=== PATIENT | female | born 1940 | race Two or more races ===

== ENCOUNTER 2025-09-30 10:54 | Inpatient (IN) | payer MEDICARE, OTHER ==
[~2025-09-30] VITALS: Ht 165.1 cm; Wt 72.6 kg
[2025-09-30] MEDS: VANCOMYCIN HCL 1.25 GM in IV D5W 260 ML IV ONE (11:41)
[2025-09-30 11:48] LABS: PLATELET COUNT (AUTO) 231 K/uL (150-450); RED BLOOD CELL COUNT(AUTO) 3.50 MIL/uL (4.0-5.2); RED CELL DISTRIBUTION WIDTH 13.0 % (11.5-15.0); WHITE BLOOD COUNT (AUTO) 5.6 K/uL (4.3-11.0)
[2025-09-30] MEDS ORDERED: LIDO30AD10 TP (11:52)
[2025-09-30] MEDS ORDERED: IBUP-1955 PO (11:52)
[2025-09-30] MEDS ORDERED: CLOP75TA15 PO (11:52)
[2025-09-30] MEDS ORDERED: CYCL5TAB PO (11:52)
[2025-09-30] MEDS ORDERED: DOCU100C36 PO (11:52)
[2025-09-30] MEDS ORDERED: FERR325T24 PO (11:52)
[2025-09-30] MEDS ORDERED: DICL100G26 TP (11:52)
[2025-09-30] MEDS ORDERED: SIME125T62 PO (11:52)
[2025-09-30] MEDS ORDERED: NYST60PO TP (11:52)
[2025-09-30] MEDS ORDERED: LACT10SO29 PO (11:52)
[2025-09-30] MEDS ORDERED: LOPE1LIQ56 PO (11:52)
[2025-09-30] MEDS ORDERED: ONDA-97 PO (11:52)
[2025-09-30] MEDS ORDERED: PANT40TA49 PO (11:52)
[2025-09-30] MEDS ORDERED: MAG30ORA PO (11:52)
[2025-09-30] MEDS ORDERED: LATA7.5D EACHEYE (11:52)
[2025-09-30] MEDS ORDERED: TRAM50TA2 PO (11:52)
[2025-09-30] MEDS ORDERED: CYCL30DR EACHEYE (11:52)
[2025-09-30] MEDS ORDERED: PROP10DR15 EACHEYE (11:52)
[2025-09-30] MEDS ORDERED: LORA10TA7 PO (11:52)
[2025-09-30] MEDS ORDERED: HYDR-4303 PO (11:52)
[2025-09-30] MEDS ORDERED: ATOR10TA PO (11:52)
[2025-09-30] MEDS ORDERED: FURO20TA4 PO (11:52)
[2025-09-30] MEDS ORDERED: METO50TA16 PO (11:52)
[2025-09-30] MEDS ORDERED: DONE5TAB34 PO (11:52)
[2025-09-30] MEDS ORDERED: ACET325T53 PO (11:52)
[2025-09-30] MEDS ORDERED: GABA300C PO (11:52)
[2025-09-30] MEDS ORDERED: MELA3TAB41 PO (11:52)
[2025-09-30] MEDS ORDERED: IPRA42SP BNOSTRILS (11:52)
[2025-09-30] MEDS ORDERED: LIPA1CAP15 PO (11:52)
[2025-09-30] MEDS ORDERED: MAGN500T2 PO (11:52)
[2025-09-30] MEDS ORDERED: VALS40TA12 PO (11:52)
[2025-09-30] MEDS ORDERED: ASCO500T20 PO (11:52)
[2025-09-30] MEDS ORDERED: MYRBETRIQ PO (11:52)
[2025-09-30 11:55] LABS: CALCIUM, SERUM 8.7 mg/dL (8.5-10.1); CREATININE 1.2 mg/dL (0.6-1.3); SODIUM SERUM 133.0 mmol/L (136-145); UREA NITROGEN, BLOOD 19.0 mg/dL (7-18)
[2025-09-30 12:01] LABS: ERYTHROCYTE SEDIMENTATION RATE 5 MM/HR (0-30)
[2025-09-30 12:17] LABS: INR 1.05 (0.91-1.10)
[2025-09-30] MEDS ORDERED: Z GUARD REMEDY 4 OZ OINT TP PRN (13:30)
[2025-09-30] MEDS ORDERED: MAG HYDROX/AL HYDROX/SIMETH 30 ML UDC PO PRN (13:30)
[2025-09-30] MEDS ORDERED: ONDANSETRON HCL/PF 4 MG/2 ML VIAL IVP PRN (13:30)
[2025-09-30] MEDS ORDERED: DOSING PER PHARMACY-VANCOMYCIN IV XX PRN (13:30)
[2025-09-30] MEDS ORDERED: MAGNESIUM HYDROXIDE 30 ML UDC PO PRN (13:30)
[2025-09-30] MEDS ORDERED: CYCLOBENZAPRINE 10 MG TABLET PO PRN (14:00)
[2025-09-30] MEDS: DONEPEZIL 5 MG TABLET PO SCH (14:46)
[2025-09-30] MEDS: CLOPIDOGREL BISULFATE 75 MG TABLET PO SCH (14:46)
[2025-09-30 15:39] VITALS: BP 125/77; TEMP 98.5; O2SAT 98
[2025-09-30 16:00] VITALS: BP 151/83; TEMP 97.9; O2SAT 98
[2025-09-30] MEDS: GABAPENTIN 300 MG CAPSULE PO SCH (16:22)
[2025-09-30] MEDS: NYSTATIN TOP POWDER 15 GM BOTTLE TP SCH (16:23)
[2025-09-30 20:00] VITALS: BP 148/65; TEMP 97.7; O2SAT 98
[2025-09-30] MEDS: ACETAMINOPHEN 325 MG TABLET PO PRN (20:13)
[2025-09-30] MEDS: ATORVASTATIN 10 MG TABLET PO SCH (21:30)
[2025-09-30] MEDS: TRAMADOL HCL 50 MG TABLET PO PRN (21:31)
[2025-09-30] MEDS: LATANOPROST EYE DROP 0.005% 2.5 ML BOTTLE EACHEYE SCH (21:31)
[2025-10-01 06:45] LABS: PLATELET COUNT (AUTO) 212 K/uL (150-450); RED BLOOD CELL COUNT(AUTO) 3.50 MIL/uL (4.0-5.2); RED CELL DISTRIBUTION WIDTH 12.8 % (11.5-15.0); WHITE BLOOD COUNT (AUTO) 5.9 K/uL (4.3-11.0)
[2025-10-01 06:57] LABS: CALCIUM, SERUM 8.8 mg/dL (8.5-10.1); CREATININE 1.1 mg/dL (0.6-1.3); PHOSPHORUS 3.4 mg/dL (2.5-4.9); SODIUM SERUM 137.0 mmol/L (136-145); UREA NITROGEN, BLOOD 14.0 mg/dL (7-18)
[2025-10-01 08:00] VITALS: BP 141/64; TEMP 97.5; O2SAT 98
[2025-10-01] MEDS: DOCUSATE SODIUM 100 MG CAPSULE PO SCH (08:15)
[2025-10-01] MEDS: LORATADINE 10 MG TABLET PO SCH (08:15)
[2025-10-01] MEDS: PANTOPRAZOLE 40 MG TABLET.DR PO SCH (08:15)
[2025-10-01] MEDS: FERROUS SULFATE (325 MG) 325 MG/TAB TABLET PO SCH (08:15)
[2025-10-01] MEDS: METOPROLOL TARTRATE 50 MG TABLET PO SCH (08:16)
[2025-10-01] MEDS: VALSARTAN 80 MG TABLET PO SCH (09:04)
[2025-10-01 11:30] VITALS: BP 120/61; TEMP 97.2; O2SAT 98
[2025-10-01] MEDS: VANCOMYCIN 1 GM in IV D5W 250ml IV SCH (12:24)
[2025-10-01] MEDS: IV 1/2NS 1000 ML 1,000 ML IV PRN (12:28)
[2025-10-01 16:00] VITALS: BP 146/81; TEMP 98.1; O2SAT 100
[2025-10-01 20:00] VITALS: BP 144/69; TEMP 97.9; O2SAT 96
[2025-10-02 08:17] VITALS: BP 146/73; TEMP 98.1; O2SAT 98
[2025-10-02 08:19] LABS: CALCIUM, SERUM 8.5 mg/dL (8.5-10.1); CREATININE 0.9 mg/dL (0.6-1.3); SODIUM SERUM 136.0 mmol/L (136-145); UREA NITROGEN, BLOOD 12.0 mg/dL (7-18)
[2025-10-02] MEDS: LIPASE/PROTEASE/AMYLASE 1 EACH CAPSULE.DR PO SCH (12:12)
[2025-10-02 16:10] VITALS: BP 120/87; TEMP 97.9; O2SAT 98
[2025-10-02 20:00] VITALS: BP 147/98; TEMP 97.5; O2SAT 97
[2025-10-02] MEDS: HYDROCODONE/APAP 5/325MG TABLET PO PRN (20:27)
[2025-10-03 07:32] LABS: CALCIUM, SERUM 9.0 mg/dL (8.5-10.1); CREATININE 0.9 mg/dL (0.6-1.3); SODIUM SERUM 140.0 mmol/L (136-145); UREA NITROGEN, BLOOD 11.0 mg/dL (7-18)
[2025-10-03 08:00] VITALS: BP 159/100; TEMP 98.2; O2SAT 96
[2025-10-03] MEDS: THERAHONEY GEL 1.5 OZ TUBE TP SCH (11:36)
[2025-10-03 16:00] VITALS: BP 136/69; TEMP 98.1; O2SAT 94
[2025-10-03 20:00] VITALS: BP 150/60; TEMP 97.5; O2SAT 99
[2025-10-04 08:00] VITALS: BP 137/61; TEMP 97.5; O2SAT 100
[2025-10-04 08:50] LABS: CALCIUM, SERUM 8.6 mg/dL (8.5-10.1); CREATININE 0.9 mg/dL (0.6-1.3); SODIUM SERUM 139.0 mmol/L (136-145); UREA NITROGEN, BLOOD 13.0 mg/dL (7-18)
[2025-10-04 16:00] VITALS: BP 137/51; TEMP 97.7; O2SAT 100
[2025-10-04 20:00] VITALS: BP 132/61; TEMP 97.7; O2SAT 97
[2025-10-05 08:00] VITALS: BP 119/70; TEMP 97.9; O2SAT 98
[2025-10-05 08:02] LABS: CALCIUM, SERUM 8.9 mg/dL (8.5-10.1); CREATININE 0.9 mg/dL (0.6-1.3); SODIUM SERUM 140.0 mmol/L (136-145); UREA NITROGEN, BLOOD 10.0 mg/dL (7-18)
[2025-10-05 09:50] VITALS: BP 119/70
== END 2025-10-05 18:00 | disposition home health service (06) | DRG 301 ==
LOC: ER 11:09 → MED 13:44
PROVIDERS: ADMIT Internal Medicine; ATTEND Nurse Practitioner Acute Care
DX: I77.89 Other specified disorders of arteries and arterioles (principal); I70.245 Atherosclerosis of native arteries of left leg with ulceration of other part of foot; L03.032 Cellulitis of left toe; I12.9 Hypertensive chronic kidney disease with stage 1 through stage 4 chronic kidney disease, or unspecified chronic kidney disease; N18.9 Chronic kidney disease, unspecified; L97.522 Non-pressure chronic ulcer of other part of left foot with fat layer exposed; K86.89 Other specified diseases of pancreas; I25.10 Atherosclerotic heart disease of native coronary artery without angina pectoris; I48.91 Unspecified atrial fibrillation; M20.41 Other hammer toe(s) (acquired), right foot; H40.9 Unspecified glaucoma; M20.42 Other hammer toe(s) (acquired), left foot; M21.611 Bunion of right foot; M21.612 Bunion of left foot; Z88.0 Allergy status to penicillin; M19.072 Primary osteoarthritis, left ankle and foot; M19.071 Primary osteoarthritis, right ankle and foot; Z95.820 Peripheral vascular angioplasty status with implants and grafts
CPT/HCPCS: 36415; 73630-TC; 80048-TC; 80202-TC; 83735-TC; 84100-TC; 85025-TC; 85652-TC; 85730-TC; 86140-TC; 87040-TC; 87081-TC; 97110-TC; 97116-TC; 97530-TC; 97535-TC; A4223; G0378; J3373; J3490; J7030; J7050; J7060